=== PATIENT | male | born 1975 | race Caucasian/White ===

== ENCOUNTER 2016-10-17 13:25 | Emergency (ER) | payer OTHER ==
[~2016-10-17] VITALS: Ht 172.7 cm; Wt 94.8 kg
[2016-10-17] MEDS ORDERED: NORCO 7.5/321 TABLET PO (15:05)
[2016-10-17 15:42] VITALS: BP 168/106
== END 2016-10-17 15:43 | disposition home or self-care (01) ==
LOC: EME 13:25
PROC: 2W3LXYZ Immobilization of Right Lower Extremity using Other Device (ICD-10-PCS; principal; 2016-10-17)
DX: S83.91XA Sprain of unspecified site of right knee, initial encounter (principal); X50.1XXA Overexertion from prolonged static or awkward postures, initial encounter; Y99.0 Civilian activity done for income or pay; Z88.0 Allergy status to penicillin
CPT/HCPCS: 73560; 99281; 99284; J1885